=== PATIENT | male | born 1940 | race Caucasian/White ===

== ENCOUNTER 2020-09-23 12:42 | Inpatient (IN) ==
[2020-09-23] MEDS ORDERED: Lidocaine/EPI 1:100k 1% 20 ML VIAL ONE (12:49)
[2020-09-23] MEDS ORDERED: *HR* EPINEPHrine 30 MG/30 ML MDV ONE (12:50)
[2020-09-23] MEDS ORDERED: *HR* Midazolam HCl 2 MG/2 ML VIAL ONE (13:21)
[2020-09-23] MEDS ORDERED: Lidocaine -MPF 2% 2 ML VIAL ONE ×2 (13:24→14:25)
[2020-09-23] MEDS ORDERED: *HR* Remifentanil 1 MG VIAL IVP ONE ×3 (13:24→18:35)
[2020-09-23] MEDS ORDERED: *HR* Propofol 200 MG/20 ML VIAL IVP ONE (13:24)
[2020-09-23] MEDS ORDERED: *HR* FentaNYL (PF) 100 MCG/2 ML VIAL ONE (13:26)
[2020-09-23] MEDS ORDERED: *HR* Phenylephrine 10 MG/ML VIAL ONE (13:29)
[2020-09-23] MEDS ORDERED: Lacri-Lube 3.5 GM TUBE ONE (13:38)
[2020-09-23] MEDS ORDERED: CeFAZolin Syr 2,000MG/20 ML 2,000 MG/20 ML SYRINGE IVPB ONE (13:40)
[2020-09-23] MEDS ORDERED: Lidocaine -MPF 4% 5 ML AMPUL ONE (13:41)
[2020-09-23] MEDS ORDERED: Ringers Solution, Lactated 1,000 ML IVC SCH ×2 (13:45→14:00)
[2020-09-23] MEDS ORDERED: Heparin 1,000 UNITS/500 mL 500 ML ONE (13:46)
[2020-09-23] MEDS ORDERED: *HR* HYDROmorphone PF 0.5 MG/0.5 ML SYRINGE IVP PRN (13:59)
[2020-09-23] MEDS ORDERED: Ondansetron 4 MG/2 ML VIAL IVP PRN ×2 (13:59→21:26)
[2020-09-23] MEDS ORDERED: Acetaminophen IV 1,000 MG/100 ML INFUS..BTL ONE (14:16)
[2020-09-23] MEDS ORDERED: Dexamethasone 4 MG/ML VIAL ONE (14:25)
[2020-09-23 14:40] LABS: Adenovirus Not Detected (Not Detect); Bordetella Pertussis Not Detected (Not Detect); Chlamydophila pneumoniae Not Detected (Not Detect); Coronavirus 229E Not Detected (Not Detect); Coronavirus HKU1 Not Detected (Not Detect); Coronavirus NL63 Not Detected (Not Detect); Coronavirus OC43 Not Detected (Not Detect); Human Metapneumovirus Not Detected (Not Detect); Human Rhinovirus/Enterovirus Not Detected (Not Detect); Influenza A Subtype 2009 H1 Not Detected (Not Detect); Influenza B Not Detected (Not Detect); Mycoplasma pneumoniae Not Detected (Not Detect); Parainfluenza Virus 1 Not Detected (Not Detect); Parainfluenza Virus 2 Not Detected (Not Detect); Parainfluenza Virus 3 Not Detected (Not Detect); Parainfluenza Virus 4 Not Detected (Not Detect); Respiratory Syncytial Virus Not Detected (Not Detect); SARS-CoV-2 Not Detected (Not Detect)
[2020-09-23] MEDS ORDERED: EPHEDrine 50 MG/ML VIAL ONE (15:31)
[2020-09-23] MEDS ORDERED: *HR* Magnesium Sulfate 1 GM/2 ML VIAL ONE ×2 (16:13→16:14)
[2020-09-23] MEDS ORDERED: *HR* Rocuronium Bromide 50 MG/5 ML VIAL ONE (18:13)
[2020-09-23] MEDS ORDERED: Acetaminophen 325 MG TABLET PO PRN (21:26)
[2020-09-23] MEDS ORDERED: *HR* OxyCODONE Immed Rel 5 MG TABLET PO PRN (21:26)
[2020-09-23] MEDS ORDERED: 0.9 % Sodium Chloride 1,000 ML IVC SCH (21:26)
[2020-09-23] MEDS ORDERED: Naloxone 0.4 MG/ML INJ IVP PRN (21:26)
[2020-09-23] MEDS: ceFAZolin 1,000 MG in Water for inj. (sterile) 10 ML IVP SCH (21:59)
[2020-09-24 04:05] LABS: Basophils % 0.1 %; Hemoglobin 11.4 g/dL (12.9-16.9); Immature Granulocytes % 0.3 % (0-4); Lymphocytes # 0.4 K/mcL (0.6-4.6); Lymphocytes % 5.2 %; Mean Corpuscular HGB Conc 32.6 g/dL (31.6-35.5); Mean Corpuscular Hemoglobin 32.9 pg (28.0-33.3); Mean Corpuscular Volume 100.9 fL (83.0-100.0); Mean Platelet Volume 10.3 fL (9.4-12.4); Monocytes # 0.3 K/mcL (0.0-1.3); Monocytes % 3.8 %; Neutrophils # 6.4 K/mcL (1.6-8.9); Nucleated Red Blood Cells 0.3 /100 WBC (0); Platelet Count 152 K/mcL (140-400); Red Blood Count 3.47 M/mcL (4.19-5.50); Red Cell Distribution Width 13.2 % (11.5-14.5); Segmented Neutrophils % 90.6 %; White Blood Count 7.1 K/mcL (4.3-11.1)
[2020-09-24 04:24] LABS: BUN/Creatinine Ratio 15 (6-26); Blood Urea Nitrogen 14 mg/dL (8-23); Calcium 8.4 mg/dL (8.6-10.3); Carbon Dioxide 20 mEq/L (23-29); Chloride 105 mEq/L (98-107); Glucose 150 mg/dL (70-105); Osmolality,Calculated 285 (280-300); Potassium 4.2 mEq/L (3.5-5.1); Sodium 136 mEq/L (136-145); eGFR For African Americans > 60 (> 60); eGFR For Non-African Americans > 60 (> 60)
[2020-09-24] MEDS: ceFAZolin 1,000 MG in Water for inj. (sterile) 10 ML IVP SCH ×3 (05:14→20:13)
[2020-09-24] MEDS: Metoprolol XL (24 HR) Succ 50 MG TAB.ER.24H PO SCH (09:47)
[2020-09-24] MEDS: amLODIPine 5 MG TABLET PO SCH (09:47)
[2020-09-24] MEDS: lisinopriL 10 MG TABLET PO SCH (09:48)
[2020-09-24] MEDS: Bacitracin/PolymyxinB OINT 14.17 GM TUBE TP SCH ×3 (12:20→20:18)
[2020-09-25] MEDS: ceFAZolin 1,000 MG in Water for inj. (sterile) 10 ML IVP SCH (05:56)
[2020-09-25 07:08] VITALS: BP 125/53
[2020-09-25] MEDS: lisinopriL 10 MG TABLET PO SCH (08:16)
[2020-09-25] MEDS: amLODIPine 5 MG TABLET PO SCH (08:16)
[2020-09-25] MEDS: Metoprolol XL (24 HR) Succ 50 MG TAB.ER.24H PO SCH (08:16)
[2020-09-25] MEDS: Bacitracin/PolymyxinB OINT 14.17 GM TUBE TP SCH (08:16)
== END 2020-09-25 11:26 | disposition home or self-care (01) | DRG 580 ==
LOC: SAMDAY 12:42 → 3ANU 21:20
PROVIDERS: ADMIT Otolaryngology; ATTEND Otolaryngology